=== PATIENT | female | born 1960 | race Asian ===

== ENCOUNTER 2023-07-17 10:10 | Emergency (ER) | payer SELFPAY ==
[~2023-07-17] VITALS: Ht 152.4 cm; Wt 77.6 kg
[2023-07-17 10:17] VITALS: TEMP 98.4
[2023-07-17 13:49] VITALS: BP 121/70; O2SAT 100
== END 2023-07-17 13:50 | disposition home or self-care (01) ==
LOC: ER 10:13
DX: S00.83XA Contusion of other part of head, initial encounter (principal); S80.02XA Contusion of left knee, initial encounter; E11.9 Type 2 diabetes mellitus without complications; W01.0XXA Fall on same level from slipping, tripping and stumbling without subsequent striking against object, initial encounter; Y93.89 Activity, other specified; Y92.89 Other specified places as the place of occurrence of the external cause; Y99.8 Other external cause status
CPT/HCPCS: 70450-TC; 73564-TC